=== PATIENT | male | born 1980 | race Caucasian/White ===

== ENCOUNTER 2017-11-14 18:44 | Emergency (ER) | payer MEDICAID ==
[~2017-11-14] VITALS: Ht 167.6 cm; Wt 90.7 kg
[2017-11-14 18:54] VITALS: BP 159/130
--- NOTE | 2017-11-14 19:10 | NUR ---
ASSUMED CARE OF PT AT THIS TIME. C/O RASH TO UPPER TORSO/BACK X 2 WEEKS. AAOX4 WITH EVEN AND STEADY GAIT; PATIENT STATES PAIN OF 0/10; VSS; PATIENT POSITIONED FOR COMFORT; HOB ELEVATED; BEDRAILS UP X2; BED DOWN. ER MD MADE AWARE OF PT STATUS. WILL CONTINUE TO MONITOR.
--- NOTE | 2017-11-14 19:30 | NUR ---
Dr. Nino evaluating patient at bedside.
[2017-11-14 19:50] VITALS: BP 148/110
--- NOTE | 2017-11-14 19:50 | NUR ---
Patient discharged with v/s stable. Written and verbal after care instructions given and explained. Patient verbalized understanding. Ambulatory with steady gait. All questions addressed prior to discharge. Advised to follow up with PMD.
== END 2017-11-14 19:50 | disposition home or self-care (01) ==
LOC: MED 18:44
DX: R21 Rash and other nonspecific skin eruption (principal)
CPT/HCPCS: 99281

== ENCOUNTER 2018-03-02 15:40 | Emergency (ER) | payer MEDICAID, OTHER ==
[~2018-03-02] VITALS: Ht 167.6 cm; Wt 91.6 kg
[2018-03-02 15:48] VITALS: BP 224/135
--- NOTE | 2018-03-02 15:48 | NUR ---
PATIENT AMBULATED TO BED 4.
--- NOTE | 2018-03-02 16:00 | NUR ---
PT C/O CHEST PAIN FOR FEW DAYS, REFERRED BY PCP. PT ALSO C/O HEADACHE AND DIZZINESS. PT DENIES NVD. PATIENT POSITIONED FOR COMFORT; HOB ELEVATED; BEDRAILS UP X1; BED DOWN. ER MD MADE AWARE OF PT STATUS.
[2018-03-02] MEDS ORDERED: ENALAPRIL 10 MG TAB PO ONE (16:40)
[2018-03-02] MEDS ORDERED: DICYCLOMINE HCL LIQUID 20 MG, ALUMINUM HYD/MAG/SIMETHICONE 30 ML, LIDOCAINE VISCOUS 2% ... PO ONE ×3 (16:40)
[2018-03-02] MEDS ORDERED: KETOROLAC 60 MG/2 ML VIAL IM ONE (16:40)
[2018-03-02] MEDS ORDERED: LABETALOL 100 MG/20 ML VIAL IVP ONE (17:35)
[2018-03-02 18:54] VITALS: BP 202/112
== END 2018-03-02 18:56 | disposition home or self-care (01) ==
LOC: MED 15:40
DX: I10 Essential (primary) hypertension (principal); R07.9 Chest pain, unspecified
CPT/HCPCS: 93005; 96372; 96374; 99283; J1885; J3490